=== PATIENT | male | born 1990 | race Caucasian/White ===

== ENCOUNTER 2024-08-23 16:12 | Emergency (ER) | payer OTHER ==
[~2024-08-23] VITALS: Ht 182.9 cm; Wt 119.0 kg
[2024-08-23] MEDS ORDERED: ondansetron HCL 4 MG/2 ML VIAL IV PRN (17:15)
[2024-08-23] MEDS ORDERED: KETOROLAC TROMETHAMINE 15 MG/ML VIAL IV ONE (17:15)
[2024-08-23 17:27] LABS: BILIRUBIN, URINE NEGATIVE (negative); BLOOD/HGB, URINE NEGATIVE (Negative); KETONE, URINE SMALL (Negative); LEUK ESTERASE, URINE NEGATIVE (negative); NITRITE, URINE NEGATIVE (negative)
[2024-08-23 17:32] LABS: BASOPHILS 0.3 % (0-2); EOSINOPHILS 0.4 % (0-6); HEMATOCRIT 50.7 % (35.0-50.0); HEMOGLOBIN 17.3 g/dL (12.0-18.0); LYMPHOCYTES 5.2 % (24-44); MCH 29.9 (27-36); MONOCYTES 4.2 % (0-12); NEUTROPHILS 89.9 % (39-80); PLATELET COUNT 182 K/uL (140-440); RBC 5.77 M/ul (4.3-5.7); RDW 13.6 (10.5-15.0)
[2024-08-23 17:46] LABS: ALBUMIN 4.4 g/dL (3.4-5.0); ALBUMIN/GLOBULIN RATIO 1.38 (1.1-2.4); BILIRUBIN, TOTAL 0.8 ng/dL (0.2-1.0); BUN/CREATININE RATIO 15.83 (6.0-28.6); CALCIUM 9.6 mg/dL (8.5-10.1); CREATININE, SERUM 1.2 mg/dL (0.70-1.30); PROTEIN, TOTAL 7.6 g/dL (6.4-8.2)
[2024-08-23] MEDS ORDERED: MELOXICAM15 MG PO (20:27)
[2024-08-23] MEDS ORDERED: CYCLOBENZAPRINE10 MG PO (20:27)
[2024-08-23] MEDS ORDERED: CYCLOBENZAPRINE HCL 10 MG HOME.PACK PO ONE (20:30)
[2024-08-23 20:50] VITALS: BP 115/87
== END 2024-08-23 20:56 | disposition home or self-care (01) ==
LOC: ED 16:12
PROVIDERS: Emergency Medicine
DX: S39.011A Strain of muscle, fascia and tendon of abdomen, initial encounter (principal); X58.XXXA Exposure to other specified factors, initial encounter
CPT/HCPCS: 36415; 74176; 80053; 81003; 85025; 96374; 96375; 99284-25; J1885; J2405